=== PATIENT | male | born 1990 | race Hispanic/Latino ===

== ENCOUNTER 2025-02-18 18:40 | Observation (INO) | payer SELFPAY ==
[~2025-02-18 18:40] MED LIST: Iopamidol 370 76% 100 ML VIAL ONE
[2025-02-18] MEDS ORDERED: Ondansetron PF 4 MG/2 ML Vial ONE (19:46)
[2025-02-18] MEDS ORDERED: Ketorolac Tromethamine 30 MG (1 mL) VIAL ONE (19:46)
[2025-02-18 19:50] LABS: #Basophils Less than 0.03 10x3/uL (0.0-0.2); #Eosinophils 0.03 10x3/uL (0.0-0.5); #Monocytes 0.70 10x3/uL (0.0-1.1); #Neutrophils 11.01 10x3/uL (1.5-8.4); %Basophils 0.2 % (0.0-2.0); %Eosinophils 0.2 % (0.0-6.0); %Lymphocytes 10.0 % (18.0-47.0); %Monocytes 5.3 % (0.0-10.0); %Neutrophils 83.8 % (40.0-75.0); Hematocrit 44.5 % (38.8-50.0); Hemoglobin 15.9 g/dL (13.5-17.5); Mean Corpuscular Hemoglobin 30.5 pg (27.0-33.0); Mean Corpuscular Volume 85.2 fL (81.2-95.1); Platelet Count 152 10x3/uL (150-450); Red Blood Cell (RBC) Count 5.22 10x6/uL (4.32-5.72); White Blood Cell (WBC) Count 13.13 10x3/uL (3.5-10.5)
[2025-02-18 20:04] LABS: ALT (SGPT) 87 U/L (Less than 45); AST (SGOT) 37 U/L (11-34); Albumin 4.0 g/dL (3.1-4.5); Alkaline Phosphatase 57 U/L (40-110); Anion Gap 14 mmol/L (10-20); BUN (Urea Nitrogen) 10 mg/dL (8.9-20.6); Bilirubin, Total 1.1 mg/dL (0.3-1.2); Calc. Creatinine Clearance 0 mL/min (70-130); Calcium 9.1 mg/dL (7.8-10.44); Carbon Dioxide 25 mmol/L (22-29); Chloride 99 mmol/L (98-107); Globulin 3.8 g/dL (2.4-3.5); Glucose 136 mg/dL (70-105); Lipase 36 U/L (8-78); Potassium 3.5 mmol/L (3.5-5.1); Sodium 134 mmol/L (136-145)
[2025-02-18 20:27] LABS: Glucose, Urine (Dipstick) Normal (Negative); Leukocyte 25 (Negative); Protein, Urine (Dipstick) 30 mg/dl (Neg-Trace); Specific Gravity, Urine 1.010 (1.005-1.030)
[2025-02-18 20:33] LABS: CAUTI Indications for Culture Pelvic or flank pain; RBC/HPF None Seen HPF (0-3)
[2025-02-18 20:34] LABS: Urine Culture Reflex No No
[2025-02-18 22:20] VITALS: BMI 45.6
[2025-02-19] MEDS: Ondansetron PF 4 MG/2 ML Vial IVP PRN (02:54)
[2025-02-19] MEDS ORDERED: Dextrose 50% Abboject 50 ML SYRINGE SLOW IVP PRN (10:33)
[2025-02-19] MEDS ORDERED: Ondansetron PF 4 MG/2 ML Vial IVP PRN (10:33)
[2025-02-19] MEDS ORDERED: Glucagon 1 MG/ML KIT IM PRN (10:33)
[2025-02-19] MEDS ORDERED: hydrALAZINE 20 MG/ML VIAL SLOW IVP PRN (10:33)
[2025-02-19] MEDS ORDERED: HYDROcodone/Acetaminophen 10/325 mg Tablet PO PRN (10:33)
[2025-02-19] MEDS ORDERED: PROPOFOL 20 ML ONE (10:39)
[2025-02-19] MEDS ORDERED: Bupivacaine/Epinephrine 0.25% 30 ML VIAL ONE (10:39)
[2025-02-19] MEDS ORDERED: Lidocaine 1% PF 5 ML VIAL ONE (10:40)
[2025-02-19] MEDS ORDERED: Rocuronium Bromide 10 MG/ML (10ML VIAL) ONE (10:40)
[2025-02-19] MEDS ORDERED: Ondansetron PF 4 MG/2 ML Vial ONE (11:50)
[2025-02-19] MEDS ORDERED: SUGAMMADEX SODIUM 200 MG/2 ML VIAL ONE (11:50)
[2025-02-19] MEDS ORDERED: Ketorolac Tromethamine 30 MG (1 mL) VIAL ONE (11:51)
[2025-02-19] MEDS: D5 1/2 NS w/20 mEq KCL 1,000 ML IV SCH (14:25)
[2025-02-19] MEDS: Ketorolac Tromethamine 30 MG (1 mL) VIAL IVP SCH (14:26)
[2025-02-19 16:32] VITALS: BP 135/76; TEMP 97.6
[2025-02-19] MEDS ORDERED: Famotidine/PF 20 mg/2ml Vial SLOW IVP SCH (21:00)
== END 2025-02-19 16:00 | disposition home or self-care (01) ==
LOC: CSHERS 18:40 → CSHTELE 21:39
PROVIDERS: ADMIT Surgery; ATTEND Surgery
PROC: 0DTJ4ZZ Resection of Appendix, Percutaneous Endoscopic Approach (ICD-10-PCS; principal; 2025-02-19)
DX: K35.80 Unspecified acute appendicitis (principal); E66.01 Morbid (severe) obesity due to excess calories; Z68.42 Body mass index [BMI] 45.0-49.9, adult
CPT/HCPCS: 74177; 80053; 81001; 83690; 85025; 88304; 96374; 96375; 96376; A4649; G0378; J1100; J1885; J2270; J2543; J2704; J3010; J7120; Q9967

== ENCOUNTER 2025-03-19 08:44 | Emergency (ER) | payer SELFPAY | END 2025-03-19 09:38 | disposition home or self-care (01) | LOC: CSHERS 08:44 | DX: S93.401A Sprain of unspecified ligament of right ankle, initial encounter (principal); X50.0XXA Overexertion from strenuous movement or load, initial encounter | CPT/HCPCS: 99283 ==